=== PATIENT | female | born 1940 | race Caucasian/White ===

== ENCOUNTER → 2019-10-21 11:27 | Outpatient (CLI) | payer MEDICARE, SELFPAY ==
--- NOTE | ~2019-10-21 | MM_ITS ---
EXAMINATION: MM screening [facility] BI [facility] HISTORY: Screening mammogram TECHNIQUE: Craniocaudal and mediolateral oblique 3-D tomosynthesis images were obtained and synthetic 2-D images were generated. CAD analysis was submitted and interpreted. COMPARISON: 10/10/2018, 09/03/2017, 05/25/2016, 04/21/2015 BREAST PARENCHYMAL COMPOSITION: There are scattered areas of fibroglandular density. FINDINGS: There is no evidence of suspicious mass, calcification, or architectural distortion to sugg est malignancy in either breast. There has been no suspicious interval change. IMPRESSION: 1. No mammographic evidence of malignancy. 2. Recommend routine screening mammography in one year. BI-RADS Category 1: Negative Reviewed, dictated and finalized at location A. [employer] PREVENTION MANAGER
== END ==
DX: Z12.31 Encounter for screening mammogram for malignant neoplasm of breast (principal)
CPT/HCPCS: 77063; 77067

== ENCOUNTER → 2020-12-15 08:01 | Outpatient (CLI) | payer MEDICARE, SELFPAY ==
--- NOTE | ~2020-12-15 | CT_ITS ---
Corrected Report Correction to Ordering Provider 12/15/2020 ARMANI EXAMINATION: CT sinus wo con DATE: 12/15/2020 08:18 INDICATION: Chronic sinusitis TECHNIQUE: Computed tomography (CT) of the paranasal sinuses was performed without intravenous contrast. The dose-length product (DLP) was 277.35 mGy-cm. Iterative reconstruction was used. COMPARISON: None FINDINGS: There is normal development and pneumatization of the paranasal sinuses. There is soft tissue density in the left nasal canal which extends into the medial aspect of the left maxillary sinus. There is erosion of the medial wall of the left maxillary sinus and the middle turbinate. The frontal, sphenoid, right ethmoid, and right maxillary sinuses are clear. The bilateral ostiomeatal complexes are patent. Visualized soft tissues are unremarkable. There is rightward deviation of the nasal septum. IMPRESSION: 1. Soft tissue density left nasal canal with erosion in the medial wall of the left maxillary sinus and the middle turbinate which could reflect chronic sinusitis, polyp, or soft tissue mass. Direct visualization is recommended. Reviewed, dictated and finalized at location B. MTDD IMPRESSION: 1. Soft tissue density left nasal canal with erosion in the medial wall of the left maxillary sinus and the middle turbinate which could reflect chronic sinus itis, polyp, or soft tissue mass. Direct visualization is recommended.
== END ==
DX: J32.9 Chronic sinusitis, unspecified (principal)
CPT/HCPCS: 70486

== ENCOUNTER → 2022-02-19 12:41 | Outpatient (CLI) | payer MEDICARE, SELFPAY ==
--- NOTE | ~2022-02-19 | MM_ITS ---
EXAMINATION: MM screening [facility] BI w [facility] HISTORY: Screening mammogram TECHNIQUE: Craniocaudal and mediolateral oblique 3-D tomosynthesis images were obtained and synthetic 2-D images were generated. CAD analysis was submitted and interpreted. COMPARISON: 10/21/2019, 10/10/2018, 09/03/2017 bilateral screening mammogram examinations BREAST PARENCHYMAL COMPOSITION: There are scattered areas of fibroglandular density. FINDINGS: There is no evidence of suspicious mass, calcification, or architectural distortion to sugg est malignancy in either breast. There has been no suspicious interval change. IMPRESSION: 1. No mammographic evidence of malignancy. 2. Recommend routine screening mammography in one year. BI-RADS Category 1: Negative Reviewed, dictated and finalized at location A.
== END ==
DX: Z12.31 Encounter for screening mammogram for malignant neoplasm of breast (principal)
CPT/HCPCS: 77063; 77067

== ENCOUNTER 2023-02-26 10:56 | Emergency (ER) | payer MEDICARE, SELFPAY ==
--- NOTE | ~2023-02-26 | XR_ITS ---
EXAMINATION: XR chest 2V DATE: 02/26/2023 11:45 INDICATION: Productive cough TECHNIQUE: PA and lateral views of the chest are obtained. COMPARISON: 08/12/2019 FINDINGS: The lungs are free of acute opacities. No pleural effusion or pneumothorax. The cardiomedia stinal silhouette is normal. There is mild thoracic spondylosis. There are changes of anterior fusion procedure in the lower cervical spine. IMPRESSION: 1. No acute cardiopulmonary abnormality. Reviewed, dictated and finalized at location L.
[2023-02-26 11:12] VITALS: BP 131/66; PULSE 73; RESP 16; TEMP 36.6; O2SAT 99
--- NOTE | 2023-02-26 12:05 | ED.URI ---
HPI - URI/Sore Throat General Chief Complaint: Upper Respiratory Infection Stated Complaint: Cough,Congestion Source: patient Mode of arrival: ambulatory Limitations: no limitations History of Present Illness HPI Narrative: 82 y/o female presented for c/o cough for about 6 days. Endorses a 'rattle' in chest that clears with cough, and occasional sob with exertion. Cough is productive of yellow mucous. Started feeling more fatigue yesterday and today. Denies cp, palpitations, n/v/d/f/c. Taking Zyrtec daily.Denies sick contacts. States pcp requests covid testing. Related Data Home Medications Medication Instructions Recorded Confirmed cyclobenzaprine 10 mg tablet 10 mg TID 08/18/19 08/18/19 diazepam 5 mg tablet 5 mg TID 08/18/19 08/18/19 estradiol 1 mg tablet 1 mg DAILY 08/18/19 08/18/19 fluoxetine 40 mg capsule 40 mg DAILY 08/18/19 08/18/19 pravastatin 20 mg tablet 20 mg DAILY 08/18/19 08/18/19 Allergies Allergy/AdvReac Type Severity Reaction Status Date / Time Penicillins Allergy Mild Verified 08/12/19 10:24 Sulfa (Sulfonamide Allergy Mild Verified 08/12/19 10:24 Antibiotics) PROPOXYPHENE NAPSYLATE Allergy Mild Uncoded 08/12/19 10:24 Review of Systems Review of Systems: CONSTITUTIONAL: Denies body aches, fever, chills, or sweats. EYES: Denies visual changes, redness, or discharge. ENT: Denies rhinorrhea, congestion, sore throat, or otalgia. CARDIOVASCULAR: Denies chest pain, palpitations, or edema. RESPIRATORY: Reports cough GASTROINTESTINAL: Denies abdominal pain, nausea, vomiting, or diarrhea. GENITOURINARY: Denies dysuria or hematuria. SKIN: Denies rash, itching, or wounds. MUSCULOSKELETAL: Denies back pain, joint pain, or myalgia. NEUROLOGIC: Denies headache, numbness, tingling, or weakness. PSYCH: Denies depression or anxiety. All systems reviewed & are unremarkable except as noted in HPI and below PMFSH Past Medical History Medical History Anxiety B-cell lymphoma Cataracts, bilateral Surgery, elective Fatty tumors left breast 1966 Surgical History Surgical History H/O: hysterectomy Social History Social History Gender identity (if verbalized by the patient): Female Comments At time of signature, I have reviewed and agree with nursing past medical, surgical, social and family history unless otherwise noted. Please see nursing chart for further information. There is no relevant family history pertinent to the presenting complaint Exam Narrative: GENERAL: Well-appearing, in no acute distress. EYES: EOMI. No redness or drainage. Conjunctivae normal. ENT: Mucous membranes pink and moist. No rhinorrhea. TMs normal bilaterally. Throat normal. Uvula midline. NECK: Normal AROM. Supple. CHEST: No respiratory distress. Lungs clear throughout. Audible Bronchial mucous with deep inspiration HEART: Regular rate and rhythm. No murmur appreciated. ABDOMEN: Soft, nontender, nondistended, normal active bowel sounds. EXTREMITIES: Normal range of motion. No edema. SKIN: Warm, dry, no rash. Capillary refill normal. Normal skin turgor. NEURO: Alert and oriented x3. Gait steady. PSYCH: Normal affect. Course Course Emergency Course: Patient is aware of diagnosis, understands and agrees to treatment plan. Anticipatory guidance given. Patient agrees to follow-up as directed and is aware of reasons to seek care at the emergency department. Portions of this record may have been created with voice recognition software Level of Care: Express Care Visit Vital Signs Vital signs: Vital Signs Temperature 97.8 F 02/26/23 11:12 Pulse Rate 73 02/26/23 11:12 Respiratory Rate 16 02/26/23 11:12 Blood Pressure 131/66 02/26/23 11:12 Pulse Oximetry 99 02/26/23 11:12 Oxygen Delivery Room Air 02/26/23 11
== END 2023-02-26 12:32 | disposition home or self-care (01) ==
PROVIDERS: Emergency Provider Nurse Practitioner Family
DX: J40 Bronchitis, not specified as acute or chronic (principal); Z20.822 Contact with and (suspected) exposure to COVID-19; F41.9 Anxiety disorder, unspecified; H26.9 Unspecified cataract; Z85.72 Personal history of non-Hodgkin lymphomas
CPT/HCPCS: 71046; 87426; 99213; C9803; G0463